=== PATIENT | male | born 1995 | race Caucasian/White ===

== ENCOUNTER 2017-06-14 17:10 | Emergency (ER) | payer OTHER ==
[~2017-06-14] VITALS: Ht 172.7 cm; Wt 145.2 kg
[~2017-06-14 17:10] MED LIST: Bactrim Ds Tab1 EACH PO; CLIN300 PO; CRUTCH4 USE; Cleocin HCl150 MG PO; Crutch1 EACH MISC; HYDACE5 PO; Hydrocodone-Ap1 EA23 PO; IBUP600 PO; IBUP800 PO; LORA10ER PO; NAPR500 PO; Norco 5-325 Ta1 EACH PO; PROACE50 PO; RXPROCODSY PO; SULTRIDS PO; Ultram50 MG PO; VICODIN 5-3001 EACH PO
[2017-06-14] MEDS ORDERED: CYCL10 PO (18:01)
== END 2017-06-14 18:10 | disposition home or self-care (01) ==
LOC: ER 17:10
DX: M54.5 Low back pain (principal); E66.01 Morbid (severe) obesity due to excess calories; Z68.42 Body mass index [BMI] 45.0-49.9, adult; Z88.0 Allergy status to penicillin; F17.220 Nicotine dependence, chewing tobacco, uncomplicated
CPT/HCPCS: 96372; 99283; J1885

== ENCOUNTER 2020-03-05 10:43 | Emergency (ER) | payer OTHER ==
[~2020-03-05] VITALS: Ht 172.7 cm; Wt 134.7 kg
[~2020-03-05 10:43] MED LIST changes: +CYCL10 PO
[2020-03-05] MEDS ORDERED: NAPR550 PO ×2 (11:08→11:11)
[2020-03-05] MEDS ORDERED: CYCL10 PO ×2 (11:08→11:11)
[2020-03-05] MEDS ORDERED: Norco 5-325 Ta1 EACH PO (11:08)
== END 2020-03-05 11:29 | disposition home or self-care (01) ==
LOC: ER 10:43
DX: G89.29 Other chronic pain (principal); M54.5 Low back pain; F17.290 Nicotine dependence, other tobacco product, uncomplicated
CPT/HCPCS: 99283

== ENCOUNTER 2020-11-24 22:12 | Observation (INO) | payer OTHER ==
[~2020-11-24] VITALS: Ht 172.7 cm; Wt 125.6 kg
[~2020-11-24 22:12] MED LIST changes: +NAPR550 PO
[2020-11-24 22:46] LABS: BASOPHILS ABSOLUTE AUTO 0.05 K/mm3 (0.00-0.23); BASOPHILS PERCENT AUTO 1 % (0-2); EOSINOPHILS ABSOLUTE AUTO 0.11 K/mm3 (0.00-0.68); EOSINOPHILS PERCENT AUTO 1 % (0-6); Hematocrit 40.5 % (37.0-53.0); IMMATURE GRAN PERCENT AUTO 1 % (0-1); LYMPHOCYTES ABSOLUTE AUTO 2.98 K/mm3 (0.84-5.20); LYMPHOCYTES PERCENT AUTO 28 % (21-46); MONOCYTES ABSOLUTE AUTO 0.68 K/mm3 (0.16-1.47); MONOCYTES PERCENT AUTO 6 % (4-13); Mean Corpuscular HGB 31.5 pg (26.0-34.0); Mean Corpuscular HGB Conc 34.6 g/dL (31.5-36.5); Mean Corpuscular Volume 91 fL (80-100); NEUTROPHILS ABSOLUTE AUTO 6.88 K/mm3 (1.96-9.15); NEUTROPHILS PERCENT AUTO 64 % (41-73); RDW Coefficient Variation 11.4 % (11.7-14.2); RDW Standard Deviation 37.7 fL (35.1-46.3); Red Blood Cell Count 4.45 M/mm3 (4.30-5.90)
[2020-11-24 22:47] LABS: Mean Platelet Volume 10.5 fL (9.1-12.4); Platelet Count 174 K/mm3 (150-400)
[2020-11-24 23:17] LABS: International Normalized Ratio 0.97; Prothrombin Time Results 10.5 Sec (9.7-11.5)
[2020-11-24 23:32] LABS: Source, Urine Clean Catch
[2020-11-24 23:43] LABS: Alanine Aminotransfer (ALT/SGP 25 U/L (12-78); Albumin, Blood 3.2 g/dL (3.4-5.0); Alk Phos 55 U/L (50-136); Anion Gap 5 mmol/L (6-16); Aspartate Aminotrans (AST/SGOT 22 U/L (12-37); Blood Urea Nitrogen 17 mg/dL (8-24); CO2, Blood 26 mmol/L (21-32); Calcium, Blood 8.3 mg/dL (8.5-10.1); Chloride, Blood 109 mmol/L (98-108); Creatinine, Blood 1.06 mg/dL (0.60-1.20); Ethanol (Alcohol), Blood, Med <3 mg/dL; Globulin, Blood 3.3 g/dL (2.2-4.0); Glomerular Filtration Rate >60 (60-); Glucose, Blood 92 mg/dL (70-99); Potassium, Blood 3.9 mmol/L (3.5-5.5); Sodium, Blood 140 mmol/L (136-145); Total Protein, Blood 6.5 g/dL (6.4-8.2)
[2020-11-24] MEDS ORDERED: BUPROPION XL150 M1 PO (23:43)
[2020-11-24 23:45] LABS: Bilirubin, Urine Neg (Neg); Blood, Urine 3+ (Neg); Glucose Qualitative, Urine Neg (Neg); Ketones, Urine Neg (Neg); Leukocyte Esterase, Urine Neg (Neg); Nitrite, Urine Neg (Neg); Protein, Urine 2+ (Neg); Urobilinogen, Urine NORM (Normal)
[2020-11-24 23:48] LABS: Appearance, Urine Clear (Clear); Color, Urine Yellow (P-Yellow)
[2020-11-24 23:56] LABS: U Amphetamine Screen Not Detected; U Barbituate Screen Not Detected; U Benzodiazapine Screen Not Detected; U Buprenorphine Screen Not Detected; U Cannabinoids Screen DETECTED; U Cocaine Screen Not Detected; U Methadone Screen Not Detected; U Methamphetamine Screen Not Detected; U Opiates Screen Not Detected; U Oxycodone Screen Not Detected; U Phencyclidine Screen Not Detected; U Propoxyphene Screen Not Detected
[2020-11-24 23:58] LABS: Bacteria Not Seen /hpf; Red Blood Cells, Urine 50-100 /hpf (0-2); Squamous Epithelial Cells Not Seen /hpf (Few); White Blood Cells, Urine Not Seen /hpf (0-5)
--- NOTE | 2020-11-25 05:43 | NUR ---
T/F AND SUMMARY: REPORT RECIEVED FROM ABBY SOUTH RN AT 0150 AND PT T/F TO ROOM 310 AT 0215 VIA [employer]. HE'S A/OX4 AND WAS ORIENTED TO ROOM AND CALL SYSTEM. PT IS TYPICALLY INDEPENDENT BUT MOBILITY IS SIGNIFICANTLY LIMITED AT THIS TIME R/T "ALLOVER" PAIN. URINAL PROVIDED AT BEDSIDE PER REQUEST. YANELIS AND DAWN RECIEVED PRN FOR REPORT OF TOLERABLE RELIEF. HE REPORTS R.LOWER BACK PAIN THAT RADIATES TOWARD ABDO R/T R.ADRENAL HEMATOMA BUT NO ABDO DISTENSION OR S/S BLEEDING OBERVED. HE ALSO HAS ROAD RASH W/EXCORIATIONS AND BRUSING TO ARMS, BACKS OF SHOULDERS, R.FLANK, R.KNEE, LLE AND FINGERS. L.ELBOW HAS LACERATION/PUNCTURE W/SMALL AMT OF BLOOD NOTED TO R.ARM DX. ER CLENSED WOUNDS, APPLIED BACITRACIN AND PLACED DX'S TO ALL WOUNDS. PHOTO DOCUMENTATION STILL NEEDS COMPLETED BUT PT REFUSED THIS SHIFT ON ACCOUNT OF PAIN, WILL ENSURE DAY STAFF ARE AWARE. NO OTHER COMPLAINTS EXPRESSED. HE SLEPT MOST OF NIGHT SINCE ARRIVAL TO FLOOR W/VSS AND AFEBRILE. WCTM AND REPORT TO DAY RN.
[2020-11-25] MEDS ORDERED: Percocet 5-3251 EACH PO (17:10)
[2020-11-25] MEDS ORDERED: IBUP600 PO (17:16)
--- NOTE | 2020-11-25 18:34 | NUR ---
DISCHARGE PT DISCHARGED AFTER BEING CLEARED BY DR. AYALA. HARD SCRIPT FOR PAIN MED AND DR AVERY FOR WORK GIVEN TO PT. PT PAIN BETTER MANAGED THIS AFTERNOON. PT WHEELED OUT BY AIDE AND DRIVEN HOME BY HIS GRANDMA. PT EDUCATED ON NEW MEDS AND SIDE EFFECTS. WELL HOW TO HAVE HIS WOUNDS CARED FOR. NO OTHER ACUTE CHANGES IN ASSESSMENT PRIOR TO DC.
[2020-12-03 07:15] LABS: CARBOXY-THC 243 (.)
== END 2020-11-25 18:34 | disposition home or self-care (01) ==
LOC: ER 22:12 → ERHOLD 22:13 → ER 11-25 00:37 → MEDS 11-25 00:37 → ERHOLD 11-25 02:14 → ER 11-25 09:54 → MEDS 11-25 09:54
PROVIDERS: Emergency Medicine; ADMIT Surgery
DX: S37.812A Contusion of adrenal gland, initial encounter (principal); S40.812A Abrasion of left upper arm, initial encounter; S40.811A Abrasion of right upper arm, initial encounter; S20.319A Abrasion of unspecified front wall of thorax, initial encounter; D35.01 Benign neoplasm of right adrenal gland; V29.88XA Motorcycle rider (driver) (passenger) injured in other specified transport accidents, initial encounter; F17.290 Nicotine dependence, other tobacco product, uncomplicated; Z88.0 Allergy status to penicillin
CPT/HCPCS: 70450; 71045; 71260; 72125; 73080; 73610; 74177; 80053; 81001; 83605; 83690; 85025; 85610; 85730; 86850; 86900; 86901; 90714; 96361; 96365; 96375; 96376; 99285-25; A9270; G0378; G0480; J0690; J1170; J2405; J3010; J7030; Q9967

== ENCOUNTER 2022-09-01 11:08 | Emergency (ER) | payer OTHER ==
[~2022-09-01] VITALS: Ht 172.7 cm; Wt 128.4 kg
[~2022-09-01 11:08] MED LIST changes: +BUPROPION XL150 M1 PO; +Percocet 5-3251 EACH PO
[2022-09-01 11:12] VITALS: BP 148/90
[2022-09-01] MEDS ORDERED: CEFP200 PO (11:32)
[2022-09-01] MEDS ORDERED: Tessalon Perle100 MG PO (11:32)
[2022-09-01] MEDS ORDERED: Cleocin HCl300 MG PO (13:27)
== END 2022-09-01 11:45 | disposition home or self-care (01) ==
LOC: ER 11:08
DX: H66.90 Otitis media, unspecified, unspecified ear (principal); F17.290 Nicotine dependence, other tobacco product, uncomplicated; Z88.0 Allergy status to penicillin; Z91.011 Allergy to milk products; Z79.899 Other long term (current) drug therapy
CPT/HCPCS: 99283

== ENCOUNTER 2022-11-20 18:52 | Emergency (ER) | payer OTHER ==
[~2022-11-20] VITALS: Ht 172.7 cm; Wt 127.0 kg
[~2022-11-20 18:52] MED LIST changes: +CEFP200 PO; +Cleocin HCl300 MG PO; +Tessalon Perle100 MG PO
[2022-11-20 19:09] VITALS: BP 133/95
[2022-11-20 20:42] LABS: BASOPHILS ABSOLUTE AUTO 0.03 K/mm3 (0.00-0.23); BASOPHILS PERCENT AUTO 0 % (0-2); EOSINOPHILS ABSOLUTE AUTO 0.09 K/mm3 (0.00-0.68); EOSINOPHILS PERCENT AUTO 1 % (0-6); Hematocrit 42.4 % (37.0-53.0); Hemoglobin 14.7 g/dL (13.5-17.5); IMMATURE GRAN ABSOLUTE AUTO 0.06 K/mm3 (0.00-0.10); IMMATURE GRAN PERCENT AUTO 0 % (0-1); LYMPHOCYTES PERCENT AUTO 12 % (21-46); MONOCYTES ABSOLUTE AUTO 1.06 K/mm3 (0.16-1.47); MONOCYTES PERCENT AUTO 7 % (4-13); Mean Corpuscular HGB 31.8 pg (26.0-34.0); Mean Corpuscular HGB Conc 34.7 g/dL (31.5-36.5); Mean Corpuscular Volume 92 fL (80-100); Mean Platelet Volume 9.6 fL (9.1-12.4); NEUTROPHILS ABSOLUTE AUTO 11.54 K/mm3 (1.96-9.15); NEUTROPHILS PERCENT AUTO 79 % (41-73); Platelet Count 272 K/mm3 (150-400); RDW Coefficient Variation 11.5 % (11.7-14.2); RDW Standard Deviation 38.3 fL (35.1-46.3); Red Blood Cell Count 4.62 M/mm3 (4.30-5.90); White Blood Cell Count 14.58 K/mm3 (4.00-11.30)
[2022-11-20 21:06] LABS: Albumin, Blood 3.7 g/dL (3.4-5.0); Albumin/Globulin Ratio 0.9 (0.8-1.8); Bilirubin, Total 1.8 mg/dL (0.1-1.0); Bun/Creatinine Ratio 17.2 (12.0-20.0); Calcium, Blood 9.2 mg/dL (8.5-10.1); Creatinine, Blood 0.99 mg/dL (0.60-1.20); Globulin, Blood 3.9 g/dL (2.2-4.0); Potassium, Blood 3.9 mmol/L (3.5-5.5); Total Protein, Blood 7.6 g/dL (6.4-8.2)
== END 2022-11-20 21:56 | disposition home or self-care (01) ==
LOC: ER 18:52
PROVIDERS: Physician Assistant
DX: E86.0 Dehydration (principal); F17.290 Nicotine dependence, other tobacco product, uncomplicated; Z91.011 Allergy to milk products; Z88.0 Allergy status to penicillin
CPT/HCPCS: 80053; 85025; 93005; 93010; 96360; 99284-25; J7030

== ENCOUNTER 2022-11-26 17:11 | Emergency (ER) | payer OTHER ==
[~2022-11-26] VITALS: Ht 172.7 cm; Wt 122.5 kg
[2022-11-26 20:32] VITALS: BP 121/76
[2022-11-26] MEDS ORDERED: MOTRIN IB200 MG PO (21:17)
[2022-11-26] MEDS ORDERED: CYCL10 PO (21:17)
== END 2022-11-26 21:47 | disposition home or self-care (01) ==
LOC: ER 17:11
DX: M54.50 Low back pain, unspecified (principal); F17.290 Nicotine dependence, other tobacco product, uncomplicated; Z91.011 Allergy to milk products; Z88.0 Allergy status to penicillin; X50.1XXA Overexertion from prolonged static or awkward postures, initial encounter
CPT/HCPCS: 72100; 96372; 99283-25; A9270; J1170; J1790; J1885

== ENCOUNTER 2024-03-27 17:07 | Emergency (ER) | payer OTHER ==
[~2024-03-27] VITALS: Ht 172.7 cm; Wt 121.1 kg
[~2024-03-27 17:07] MED LIST changes: +MOTRIN IB200 MG PO
[2024-03-27 17:52] VITALS: BP 148/77
== END 2024-03-27 18:50 | disposition home or self-care (01) ==
LOC: ER 17:07
DX: S92.535A Nondisplaced fracture of distal phalanx of left lesser toe(s), initial encounter for closed fracture (principal); W22.8XXA Striking against or struck by other objects, initial encounter; F17.290 Nicotine dependence, other tobacco product, uncomplicated; Z88.0 Allergy status to penicillin; Z91.011 Allergy to milk products; Z79.899 Other long term (current) drug therapy
CPT/HCPCS: 73630; 99283-25

== ENCOUNTER 2024-05-28 15:55 | Emergency (ER) | payer OTHER ==
[~2024-05-28] VITALS: Ht 175.3 cm; Wt 122.5 kg
[2024-05-28 16:19] VITALS: BP 145/74
[2024-05-28] MEDS ORDERED: Ketorolac Tromethamine 15mg Vial IM ONE (16:25)
[2024-05-28] MEDS ORDERED: Methocarbamol 500 MG Tab PO ONE (17:05)
[2024-05-28] MEDS ORDERED: HYDROcodone 5-APAP 325 TAB PO ONE (17:05)
[2024-05-28] MEDS ORDERED: LIDO700A20 TOP (18:09)
[2024-05-28] MEDS ORDERED: Robaxin750 MG PO (18:09)
[2024-05-28] MEDS ORDERED: PRED20 PO (18:09)
== END 2024-05-28 18:25 | disposition home or self-care (01) ==
LOC: ER 15:55
DX: M54.50 Low back pain, unspecified (principal); F17.290 Nicotine dependence, other tobacco product, uncomplicated; Z79.899 Other long term (current) drug therapy; Z91.011 Allergy to milk products; Z88.0 Allergy status to penicillin
CPT/HCPCS: 72100; 96372; 99283-25; A9270; J1885

== ENCOUNTER → 2024-12-24 | Outpatient (CLI) | payer OTHER ==
[~2024-12-24] MED LIST changes: +LIDO700A20 TOP; +PRED20 PO; +Robaxin750 MG PO
== END | disposition home or self-care (01) ==
LOC: LAB 11:09 → LAB SHORT 11:09
DX: J02.9 Acute pharyngitis, unspecified (principal)
CPT/HCPCS: 87081